=== PATIENT | female | born 1985 | race Caucasian/White ===

== ENCOUNTER → 2018-05-04 | Emergency (ER) | payer OTHER ==
[~2018-05-04] VITALS: Ht 167.6 cm; Wt 60.3 kg
[~2018-05-04] MED LIST: SYNTHROID50 MCG
== END | disposition home or self-care (01) ==
LOC: ER 11:05
DX: R00.2 Palpitations (principal); F06.4 Anxiety disorder due to known physiological condition

== ENCOUNTER 2018-05-14 07:52 | Outpatient (CLI) | payer OTHER | END 2018-05-14 08:33 | disposition home or self-care (01) | LOC: NUCLEAR 07:52 | DX: R07.89 Other chest pain (principal); R94.31 Abnormal electrocardiogram [ECG] [EKG] | CPT/HCPCS: 78452; 93017; A9500 ==